=== PATIENT | female | born 1990 | race Two or more races ===

== ENCOUNTER 2019-09-23 07:03 | Inpatient (IN) | payer MEDICAID, OTHER ==
[2019-09-23] VITALS (16 sets, daily range): BP systolic 86–144; BP diastolic 47–81
[~2019-09-23] VITALS: Ht 162.6 cm; Wt 68.5 kg
[~2019-09-23 07:03] MED LIST: ceFAZolin 1GM/50ML 50 ML IV ONE
[2019-09-23] MEDS: METHYLERGONOVINE MALEATE 0.2 MG/ML AMP IM PRN ×2 (07:12→08:30)
[2019-09-23] MEDS: DIPHENOXYLATE W/ATROPINE 2.5 MG TAB PO ONE ×2 (07:15→08:15)
[2019-09-23] MEDS ORDERED: miSOPROStol 100 mcg TAB SL ONE (07:30)
[2019-09-23] MEDS ORDERED: miSOPROStol 100 mcg TAB PR ONE (07:30)
[2019-09-23] MEDS ORDERED: miSOPROStol 100 mcg TAB ONE (07:33)
[2019-09-23] MEDS ORDERED: METHYLERGONOVINE MALEATE 0.2 MG/ML AMP IM ONE (07:33)
[2019-09-23] MEDS ORDERED: CARBOPROST TROMETHAMINE 250 MCG/1ML VIAL IM ONE (08:07)
[2019-09-23] MEDS ORDERED: OXYTOCIN 10UNIT/ML 1ML VIAL ONE (08:09)
[2019-09-23] MEDS ORDERED: IBUPROFEN 600 MG TAB PO PRN (08:15)
[2019-09-23] MEDS ORDERED: ACETAMINOPHEN 325 MG TAB PO PRN (08:15)
[2019-09-23] MEDS ORDERED: LACT RINGERS IV ONE (08:17)
[2019-09-23] MEDS ORDERED: OXYTOCIN IV ONE (08:17)
[2019-09-23] MEDS ORDERED: TUBERCULIN PPD 5 UNIT/0.1 ML ID ONE (08:45)
[2019-09-23 08:48] LABS: Basophils # (auto) 0 uL; Basophils % (auto) 0.3 % (0.0-2.0); Eosinophils # (auto) 0 uL; Eosinophils % (auto) 0.2 % (0.0-7.0); Hematocrit 29.9 % (36.0-46.0); Hemoglobin 9.7 g/dL (12.2-16.2); Lymphocytes # (auto) 1.1 uL; Lymphocytes % (auto) 6.8 % (10.0-50.0); Mean Corpuscular Hemoglobin 29.8 pg (28.0-32.0); Mean Corpuscular Hgb Conc. 32.6 g/dL (32.0-36.0); Mean Corpuscular Volume 91.4 fL (80.0-100.0); Monocytes # (auto) 0.6 uL; Neutrophils # (auto) 14.3 uL; Neutrophils % (auto) 88.7 % (37.0-80.0); Platelet Count (auto) 211 10^3/uL (140-450); Red Blood Cells 3.27 10^6/uL (4.0-5.20); Red Cell Distribution Width 13.2 % (11.8-14.3)
[2019-09-23 09:01] LABS: Urine Bacteria FEW /hpf (None Seen); Urine Blood 2+ /uL (Negative); Urine Mucus FEW (None Seen); Urine Specific Gravity 1.016 (1.001-1.035); Urine WBC 35 /hpf (0 - 5)
[2019-09-23 09:08] LABS: Albumin 2.4 g/dL (3.4-5.0); Calcium 8.3 mg/dL (8.5-10.1); Potassium 3.6 mmol/L (3.5-5.1)
[2019-09-23 09:12] LABS: BUN/Creatinine Ratio 8.8; Bilirubin, Total 0.4 mg/dL (0.2-1.0); Total Protein 6.5 g/dL (6.4-8.2)
[2019-09-23] MEDS: CARBOPROST TROMETHAMINE 250 MCG/1ML VIAL IM PRN ×2 (09:17→09:49)
[2019-09-23 09:24] LABS: INR 0.91 (0.9-1.15); Partial Thromboplastin Time 22.8 sec (23.64-32.05)
[2019-09-23] MEDS ORDERED: ceFAZolin 1GM/50ML 50 ML IV ONE ×2 (09:30→17:30)
[2019-09-23] MEDS ORDERED: LACT. RINGERS/OXYTOCIN 20UNITS 1,000 ML IV SCH (09:39)
[2019-09-23] MEDS: ceFAZolin 1GM/50ML 50 ML IV SCH ×2 (10:09→17:56)
[2019-09-23] MEDS ORDERED: DIPHENOXYLATE W/ATROPINE 2.5 MG TAB PO PRN (10:30)
[2019-09-23] MEDS: FERROUS SULFATE 325 MG TAB PO SCH ×3 (11:55→22:00)
[2019-09-23] MEDS ORDERED: PHISODERM TOP SOLN 240ML BTL TOP ONE ×2 (15:15→15:30)
[2019-09-23] MEDS ORDERED: DERMOPLAST 60ML BOTTLE TOP PRN (15:15)
[2019-09-23] MEDS ORDERED: WITCH HAZEL-GLYCERIN PAD TOP PRN (15:15)
[2019-09-23 16:16] LABS: Urine Bacteria NONE SEEN /hpf (None Seen); Urine Blood 1+ /uL (Negative); Urine Specific Gravity 1.003 (1.001-1.035); Urine WBC 1 /hpf (0 - 5)
[2019-09-23 16:30] LABS: Amphetamine Screen, Urine NEGATIVE (NEGATIVE); Barbiturate Scree,Urine NEGATIVE (NEGATIVE); Benzodiazephine Screen, Urine NEGATIVE (NEGATIVE); Cannabinoid Screen, Urine NEGATIVE (NEGATIVE); Cocaine Screen, Urine NEGATIVE (NEGATIVE); Opiate Scree,Urine NEGATIVE (NEGATIVE); Phencyclidine Screen, Urine NEGATIVE (NEGATIVE)
[2019-09-23 16:32] LABS: Alcohol, Urine < 3.0 mg/dL (0-5)
[2019-09-24] MEDS: ceFAZolin 1GM/50ML 50 ML IV SCH (01:57)
[2019-09-24 02:44] VITALS: BP 106/56
[2019-09-24] MEDS: FERROUS SULFATE 325 MG TAB PO SCH ×2 (05:33→22:02)
[2019-09-24 07:03] VITALS: BP 101/58
[2019-09-24 07:57] LABS: Basophils # (auto) 0 uL; Basophils % (auto) 0.2 % (0.0-2.0); Eosinophils # (auto) 0.1 uL; Eosinophils % (auto) 0.8 % (0.0-7.0); Hematocrit 26.2 % (36.0-46.0); Hemoglobin 9.1 g/dL (12.2-16.2); Lymphocytes # (auto) 1.3 uL; Lymphocytes % (auto) 14.6 % (10.0-50.0); Mean Corpuscular Hemoglobin 31.2 pg (28.0-32.0); Mean Corpuscular Hgb Conc. 34.6 g/dL (32.0-36.0); Mean Corpuscular Volume 90.1 fL (80.0-100.0); Monocytes # (auto) 0.5 uL; Monocytes % (auto) 5.5 % (0.0-12.0); Neutrophils # (auto) 6.9 uL; Neutrophils % (auto) 78.9 % (37.0-80.0); Platelet Count (auto) 206 10^3/uL (140-450); Red Blood Cells 2.91 10^6/uL (4.0-5.20); Red Cell Distribution Width 13.3 % (11.8-14.3); White Blood Cell 8.8 10^3/uL (4.4-10.8)
[2019-09-24 10:45] VITALS: BP 95/51
[2019-09-24 15:59] VITALS: BP 97/63
[2019-09-24 19:00] VITALS: BP 95/51
[2019-09-24 22:40] VITALS: BP 115/67
[2019-09-25 03:00] VITALS: BP 95/60
[2019-09-25] MEDS: FERROUS SULFATE 325 MG TAB PO SCH ×2 (05:24→05:25)
[2019-09-25 07:00] VITALS: BP 97/60
[2019-10-04 10:48] LABS: RPR Non Reactive (Non Reactive); Rubella Antibodies, IgG 1.29 index (Immune >0.99)
== END 2019-09-25 10:40 | disposition home or self-care (01) | DRG 560 ==
LOC: LDRP 07:03
PROVIDERS: ADMIT Obstetrics & Gynecology; ATTEND Obstetrics & Gynecology
PROC: 10E0XZZ Delivery of Products of Conception, External Approach (ICD-10-PCS; principal; 2019-09-23)
DX: O62.3 Precipitate labor (principal); O99.844 Bariatric surgery status complicating childbirth; Z37.0 Single live birth; Z90.49 Acquired absence of other specified parts of digestive tract; Z3A.37 37 weeks gestation of pregnancy
CPT/HCPCS: 36415; 51702; 59025; 59409; 80053; 80307; 81001; 81002; 84112; 85025; 85384; 85610; 85730; 86592; 86762; 86850; 86900; 86901; 87340; 96366; 96372; G0378; J0690